=== PATIENT | male | born 1980 | race Caucasian/White ===

== ENCOUNTER 2025-02-28 18:09 | Emergency (ER) | payer BC, SELFPAY ==
[2025-02-28 18:15] VITALS: BP 156/97
--- NOTE | 2025-02-28 20:02 | ED.GENMED ---
History of Present Illness
General
Chief Complaint: Musculo-Skeletal Complaint
Time Seen by Provider: 02/28/25 20:01
History of Present Illness
History of Present Illness:
TIME OF INITIAL EVALUATION
- 8:05 PM
REVIEW OF OLD RECORDS
- The patient has history of back pain and GERD and high blood pressure. The patient was seen here and he was in diagnosed with a muscle spasm. He also had an MRI of the elbow and it was in 2039.
Note:
CHIEF COMPLAINT(S)
Left shoulder pain following suspected dislocation.
HISTORY OF PRESENT ILLNESS
The patient is a 45-year-old male who reports a history of left shoulder dislocation, which was previously surgically managed. He presented to the emergency room with complaints that the shoulder 'felt like it was out again' but was uncertain if it
truly dislocated this time. The patient did not seek medical attention in the past month despite discomfort. There was no acute injury, fall, or trauma reported in the past few days that could account for his current symptoms.
The patient describes recent left shoulder pain exacerbated by certain movements, particularly those that engage the rotator cuff. He reports tenderness to palpation over the acromioclavicular joint and biceps tendon, suggesting potential tendonitis
and inflammation of surrounding soft tissue. Radiographic evaluation indicated that the shoulder was in position with no dislocation observed.
The patients medical history includes a previous cervical spine injury at the C4-C5 level a couple of years ago, with some persistent neck muscle issues.
PHYSICAL EXAM
General: Alert, no acute distress.
Skin: Warm, dry.
Head: Normocephalic, atraumatic.
Neck: Supple, trachea midline.
Eye Ears, Nose, Mouth, and Throat: Oral mucosa moist.
Cardiovascular: Normal peripheral perfusion, No edema.
Respiratory: Respirations are non-labored.
Gastrointestinal: Abdomen nondistended
Back: Normal range of motion, Normal alignment.
Musculoskeletal: Tenderness over the acromioclavicular joint and biceps tendon, there is decreased active range of motion today in the abduction at the left shoulder, there is also some tenderness at the left biceps tendon proximally.
Neurological: Alert and oriented to person, place, time, and situation, No focal neurological deficit observed.
Psychiatric: Cooperative, appropriate mood & affect.
PROBLEM LIST
Acute:
1. Left shoulder pain with suspected soft tissue inflammation.
2. Possible rotator cuff involvement.
PLAN
1. Provide a sling for the patient for shoulder support.
2. Offer Toradol injection for anti-inflammatory relief, though the patient declined.
3. Patient to use Meloxicam at home as needed, as it is tolerated better than other NSAIDs which irritate his stomach.
4. Recommended follow-up with an gas specialist, specifically [facility], where the patient has previous records.
DIFFERENTIAL DIAGNOSIS
The Differential Diagnosis includes, in no particular order and is not limited to:
1. Rotator cuff injury
2. Tendonitis
3. Acromioclavicular joint inflammation or arthritis
4. Biceps tendonitis
5. Shoulder impingement syndrome
6. Adhesive capsulitis (frozen shoulder)
7. Glenohumeral joint arthritis
8. Labral tear
9. Cervical radiculopathy
10. Bursitis
RADIOLOGY
- X-ray of the left shoulder shows no acute fracture or dislocation
EKG
-
LABS
-
UPDATE
-SUMMARY OF ENCOUNTER
The patient, a 45-year-old male with a history of left shoulder dislocation previously managed surgically, presented to the emergency department with left shoulder pain. He reported feeling as though the shoulder was 'out' again, though there was no
acute trauma or injury preceding this episode. The pain was exacerbated by movements involving the rotator cuff. A physical exam revealed tenderness over the acromioclavicular joint and biceps tendon, suggesting potential tendonitis or soft tissue
inflammation. The radiographic evaluation indicated no dislocation was present. Management included providing a shoulder cradle sling for support. The patient was advised to follow up with [facility], where he has previous records, due to
suspected rotator cuff pathology or bicipital tendonitis. While a Toradol injection was offered for anti-inflammatory relief, the patient opted against it, preferring to use meloxicam at home.
DISPOSITION
Discharge
ASSESSMENT
Left shoulder pain likely due to rotator cuff pathology or bicipital tendonitis without dislocation.
PLAN
1. Provide shoulder cradle sling for stabilization and support.
2. Follow up with [facility] to evaluate for suspected rotator cuff involvement or biceps tendonitis.
INDEPENDENT REVIEW OF LABS AND INTERPRETATION OF TESTS
My independent review of the shoulder X-ray is that there is no dislocation observed.
FOLLOW-UP INSTRUCTIONS
The patient is advised to follow up with [facility] for further evaluation and management of the suspected shoulder pathology.
MEDICATION RECONCILIATION
The patient declined Toradol injection and will use meloxicam at home as needed.
MEDICAL DECISION MAKING
-Number and Complexity of Problems Addressed:
Chronic conditions affecting care include previous cervical spine injury and past left shoulder dislocation. Differential diagnosis considerations include rotator cuff injury, tendonitis, acromioclavicular joint inflammation or arthritis, biceps
tendonitis, shoulder impingement syndrome, adhesive capsulitis, glenohumeral joint arthritis, labral tear, cervical radiculopathy, bursitis.
-Data:
Category 1:
My independent interpretation of the shoulder X-ray showed no dislocation.
Category 3:
Discussion of management with the patient regarding use of meloxicam for pain relief and follow-up with orthopedic specialists.
-Risk:
Prescription medication was prescribed: The patient will take meloxicam at home for pain management.
DIAGNOSIS
1. Bicipital tendinitis suspected, ICD-10: M75.22
2. Possible Rotator Cuff Pathology, ICD-10: M75.100
Past History
Past History
ED Past Medical History: GERD, HTN, Hypercholesterolemia and Other (Gout)
ED Past Surgical History: Orthopedic (Shoulder)
Social History
Tobacco: Former smoker
Alcohol: Occasional
Personal: Single
Living: alone
Phy Exam
Physical Exam
Physical Exam:
See HPI
Course
Orders/Labs/Results
Orders:
Orders
02/28/25 18:19
CR Shoulder, Trauma - Left Urgent
Comment:
Reason For Exam: Injury
02/28/25 20:09
Sling Left-Treatment ONCE
Vital Signs
Initial and Last Documented VS:
Initial Vital Signs
Temp Pulse Resp BP Pulse Ox
36.8 C 60 16 156/97 99
02/28/25 18:15 02/28/25 18:15 02/28/25 18:15 02/28/25 18:15 02/28/25 18:15
Last Documented Vital Signs
Temp Pulse Resp BP Pulse Ox
36.8 C 60 16 156/97 99
02/28/25 18:15 02/28/25 18:15 02/28/25 18:15 02/28/25 18:15 02/28/25 20:04
*Pulse Oximetry
SaO2: 99
Oxygen Mode of Delivery: Room air
Patient hypoxic: no
*Critical Care Note
Total Time (30-74mins, 75-104mins- exclusive of procedures): Not Applicable
ED Attending Note
-
Portions of this chart may have been created with voice recognition software.� Occasional wrong word or��sound alike� substitutions may have occurred due to the inherent limitations of voice recognition software.
Discharge Plan
Departure
Patient Disposition: Home (Routine Discharge)
Date of Disposition: 02/28/25
Time of Disposition: 20:09
Patient with high blood pressure during this ER visit?: Yes
Discharge Problem:
Rotator cuff tendinitis
Instructions: How to Use a Shoulder Sling
Prescriptions:
No Action
oxycodone-acetaminophen [Endocet] 1 EACH tablet
1 ea PO PRN PRN (Reason: back pain)
Nadolol
40 mg PO DAILY
hydrocodone-ibuprofen 200 MG/7.5 MG tablet
1 tab PO Q6HPRN PRN (Reason: pain) Qty: 10 0RF
prochlorperazine maleate 10 MG tablet
10 mg PO Q8HPRN PRN (Reason: headaches and nausea) Qty: 12 0RF
amoxicillin-pot clavulanate 1 TABLET tablet
1 tab PO Q12 Qty: 20 0RF
prednisone 50 MG tablet
50 mg PO DAILY AT 0700 Qty: 7 0RF
prednisone 20 MG tablet
40 mg PO DAILY Qty: 6 0RF
Activity Restrictions/Additional Instructions:
I recommend that you follow-up with your doctors at [facility]. Continue meloxicam for pain return here if worse or other concerns.
Interventions
Interventions:
ED-Musculoskeletal Assessment Last Done: 02/28/25 19:14
Discharge Date and Time
Print Language: ROMANSH
== END 2025-02-28 20:27 | disposition home or self-care (01) ==
LOC: EMR 18:09
PROVIDERS: EMERGENCY PHYSICIAN Emergency Medicine
DX: M25.512 Pain in left shoulder (principal)
CPT/HCPCS: 99283; 73030

== ENCOUNTER 2025-04-22 23:51 | Emergency (ER) | payer BC, SELFPAY ==
[2025-04-22 23:53] VITALS: BP 146/86
--- NOTE | 2025-04-23 01:29 | ED.MUSCINJ ---
HPI-Injury
General
Chief Complaint: Musculo-Skeletal Complaint
Source: patient
Exam Limitations: none
Time Seen by Provider: 04/23/25 00:22
History of Present Illness-Injury
Initial Injury comments:
Note:
CHIEF COMPLAINT(S)
Right hand pain and previous shoulder issue.
HISTORY OF PRESENT ILLNESS
The patient is a 45-year-old male who presents with right hand pain. The patient mentions experiencing issues with the right hand and has a history of shoulder problems, previously addressed through surgery. The patient reports a past incident
involving a pinch at the C4 and C5 vertebrae level, occurring several years ago. The patient also discusses currently experiencing symptoms in the left hip, described as a 'small sciatic band' issue.
PAST MEDICAL AND SURGICAL HISTORY
The patient has mentioned undergoing surgery for a shoulder issue in the past.
PHYSICAL EXAM
General: Alert, no acute distress.
Skin: Warm, dry.
Head: Normocephalic, atraumatic.
Neck: Supple, trachea midline.
Eye Ears, nose, mouth and throat: Oral mucosa moist.
Cardiovascular: Normal peripheral perfusion, No edema.
Respiratory: Respirations are non-labored.
Back: Normal range of motion, Normal alignment.
Musculoskeletal: Normal ROM, normal strength.
Neurological: Alert and oriented to person, place, time, and situation, No focal neurological deficit observed.
Psychiatric: Cooperative, appropriate mood & affect.
PLAN
Plan to perform imaging studies for further evaluation of the right hand and potentially the shoulder. An MRI has been advised to assess the condition. The patient is advised that a CD copy of the imaging can be provided for reference and sharing
with other healthcare providers if needed.
DIFFERENTIAL DIAGNOSIS
The Differential Diagnosis includes, in no particular order and is not limited to:
1. Carpal Tunnel Syndrome
2. Cervical Radiculopathy
3. Rotator Cuff Tear
4. Scaphoid Fracture
5. Bursitis
6. Arthritis
7. Tendinitis
8. Peripheral Neuropathy
9. Shoulder Impingement Syndrome
10. Lateral Epicondylitis
Disposition:
SUMMARY OF ENCOUNTER
A 45-year-old male presented to the emergency department with sub-acute right-hand pain following a hand trauma several weeks ago. He also has a history of chronic left shoulder pain and chronic neck issues. The patients family doctor had requested
X-rays of the hand, shoulder, and cervical spine for further evaluation. At this time, the patient has no immediate complaints. Examination reveals full range of motion in the right hand with minimal swelling. X-rays of the hand, shoulder, and
cervical spine were performed, and all were negative.
DISPOSITION
The patient is to be discharged home with a copy of the X-rays for follow-up with his orthopedic surgeon and family doctor.
ASSESSMENT
Right hand pain following recent trauma, with negative X-rays indicating no fracture or acute abnormality.
PLAN
The patient will be discharged with copies of the X-rays to provide to the orthopedic surgeon and family doctor for continued evaluation and management.
INDEPENDENT REVIEW OF LABS AND INTERPRETATION OF TESTS
My independent interpretation of the X-rays of the right hand, shoulder, and cervical spine shows no abnormalities or fractures.
MEDICAL DECISION MAKING
-Complexity of Data Reviewed: Chronic conditions affecting care include past surgical history of the shoulder and chronic neck problems.
-Data:
Category 1
The following testing considered and performed: X-rays of the right hand, shoulder, and cervical spine.
-Risk:
Consideration of Admission/Observation: Escalation of care including admission/observation was considered given the complexity and risk of the patients presenting complaint. However, ultimately, I feel the patient is safe for outpatient management
with close follow-up. Reasoning: Work-up reassuring with negative X-rays, does not reveal any acute life/organ-threatening processes, patients symptoms well-controlled upon reevaluation, reexamination is reassuring, vitals are stable, patient
agreeable with discharge, reliable for follow-up.
DIAGNOSIS
Sprain of the right hand (ICD-10: S63.509A)
Chronic left shoulder pain (ICD-10: M25.512)
Cervicalgia (ICD-10: M54.2)
Past History
Past History
ED Past Medical History: GERD, HTN, Hypercholesterolemia and Other (Gout)
ED Past Surgical History: Orthopedic (Shoulder)
Social History
Tobacco: Former smoker
Alcohol: Occasional
Personal: Single
Living: alone
Injury Course
Orders/Labs/Results
Orders:
Orders
04/23/25 00:40
CR Cervical Sp 6/+ (flex/ext) Urgent
Reason For Exam: pain. please inc flex/ex
Hand, Right 3 View [CR Hand - Right Min 3 Views] Urgent
Comment:
Reason For Exam: recent trauma
Shoulder, Left, Trauma CR [CR Shoulder, Trauma - Left] Urgent
Comment:
Reason For Exam: pain
*Radiology
Radiology exam reviewed: all reviewed NAD by ED Provider
*Pulse Oximetry
SaO2: 97
Oxygen Mode of Delivery: Room air
Patient hypoxic: no
*Critical Care Note
Total Time (30-74mins, 75-104mins- exclusive of procedures): Not Applicable
ED Attending Note
-
Portions of this chart may have been created with voice recognition software.� Occasional wrong word or��sound alike� substitutions may have occurred due to the inherent limitations of voice recognition software.
Discharge Plan
Departure
Patient Disposition: Home (Routine Discharge)
Date of Disposition: 04/23/25
Time of Disposition: 01:29
Patient with high blood pressure during this ER visit?: Yes
Condition: Good
Discharge Problem:
Musculoskeletal pain
Instructions: Muscle and Bone Pain (DC), Using Cold for Pain, BLOOD PRESSURE
Prescriptions:
No Action
oxycodone-acetaminophen [Endocet] 1 EACH tablet
1 ea PO PRN PRN (Reason: back pain)
Nadolol
40 mg PO DAILY
hydrocodone-ibuprofen 200 MG/7.5 MG tablet
1 tab PO Q6HPRN PRN (Reason: pain) Qty: 10 0RF
prochlorperazine maleate 10 MG tablet
10 mg PO Q8HPRN PRN (Reason: headaches and nausea) Qty: 12 0RF
amoxicillin-pot clavulanate 1 TABLET tablet
1 tab PO Q12 Qty: 20 0RF
prednisone 50 MG tablet
50 mg PO DAILY AT 0700 Qty: 7 0RF
prednisone 20 MG tablet
40 mg PO DAILY Qty: 6 0RF
Referrals:
Jadiel Guillen MD [Active, Orthopedics]
Activity Restrictions/Additional Instructions:
Please take the CD provided to your orthopedic surgeon for reference
Thank You for choosing [facility].
It was a pleasure meeting you and taking part in your care. We hope for your continued healing and wellness.
Please read discharge instructions in their entirety. However, they are for general education and may not describe your exact diagnosis at discharge. Information on your ER visit and medical conditions were discussed with you along with appropriate
follow up information...
If indicated, please take your medications as instructed and indicated on discharge paperwork.
Please schedule a follow up appointment as directed. Call to schedule an appointment
Please return to the emergency department with ANY change in, persisting, or worsening of symptoms. If any of your symptoms do not improve, or persist, or become more severe within 6-12 hours, please return to the emergency department for further
care.
Please return to the emergency department if you develop a headache, neck pain/stiffness, fever greater than 100.4F, chest pain, shortness of breath, persistent nausea, vomiting, slurred speech, difficulty walking, numbness/tingling, weakness, signs
of infection or any other symptoms that are worrisome to you.
If you have any questions or concerns please do not hesitate to call the Hospital at or E-mail me directly at [email or web address]
Interventions
Interventions:
*Risk Screen - Suicide Last Done: 04/22/25 23:53
*General Assessment Last Done: 04/22/25 23:53
*Neglect/Abuse Screening Last Done: 04/22/25 23:53
*ED- Fall Risk Assessment Last Done: 04/22/25 23:53
*ED COVID-19 Vaccine History Last Done: 04/22/25 23:53
Discharge Date and Time
Print Language: BURUNDIAN
[2025-04-23 01:37] VITALS: BP 122/73
== END 2025-04-23 01:39 | disposition home or self-care (01) ==
LOC: EMR 23:51
PROVIDERS: EMERGENCY PHYSICIAN Student in an Organized Health Care Education/Training Program; FAMILY PHYSICIAN Family Medicine
DX: M79.18 Myalgia, other site (principal); M25.512 Pain in left shoulder; G89.21 Chronic pain due to trauma; I10 Essential (primary) hypertension; E78.00 Pure hypercholesterolemia, unspecified; K21.9 Gastro-esophageal reflux disease without esophagitis; M10.9 Gout, unspecified; Z87.891 Personal history of nicotine dependence
CPT/HCPCS: 99283; 72052; 73030; 73130

== ENCOUNTER 2025-04-29 15:19 | Emergency (ER) | payer BC, SELFPAY ==
[2025-04-29] VITALS (8 sets, daily range): BP systolic 93–119; BP diastolic 67–85; BMI 29.2
[2025-04-29 15:34] LABS: Hematocrit 38.6 % (39.0-52.0); Hemoglobin 12.9 g/dL (13.0-18.0); Mean Corp Hgb Conc. 33.4 g/dL (33.0-37.0); Mean Corpuscular Volume 90.8 fL (80.0-94.0); Nucleated Red Blood Cells % 0 % (-); Platelet Count 252 10^3/uL (130-400); Red Cell Dist. Width 12.8 % (11.5-14.5)
[2025-04-29] MEDS: NSS 1000 IV (15:42)
[2025-04-29 15:49] LABS: Blood Urea Nitrogen 29 mg/dl (9-20); Calcium 9.3 mg/dl (8.4-10.2); Carbon Dioxide 34 mmol/L (22-30); Chloride 97 mmol/L (98-107); Estimated Creatinine Clearance 90 ml/min; Glucose 107 mg/dl (70-99); Potassium 4.4 mmol/L (3.5-5.1); Sodium 133 mmol/L (135-145); eGFR > 60.00
[2025-04-29 16:00] LABS: Troponin I < 0.012 ng/ml
--- NOTE | 2025-04-29 19:20 | ED.GENMED ---
History of Present Illness
General
Chief Complaint: Fainting Sensation
Source: patient
Exam Limitations: none
Time Seen by Provider: 04/29/25 15:22
History of Present Illness
History of Present Illness:
45-year-old male was getting a left shoulder injection for a myelogram MRI. During the injection of the lidocaine patient became diaphoretic clammy sweaty hypotensive and bradycardic. No chest pain or shortness of breath. Sent for further
evaluation.
Past History
Past History
ED Past Medical History: GERD, HTN, Hypercholesterolemia and Other (Gout)
ED Past Surgical History: Orthopedic (Shoulder)
Social History
Tobacco: Former smoker
Alcohol: Occasional
Personal: Single
Living: alone
Review of Systems
Review of Systems
All Other Systems: Not applicable
Constitutional: Denies fever
Respiratory: Reports no symptoms
Cardiac: Denies chest pain or palpitations
Phy Exam
Physical Exam
Physical Exam:
GENERAL: Alert and oriented in no apparent distress
EYE: Orbits normal.
NECK: Supple, no significant adenopathy.
ENT: Pharynx without erythema
CARDIAC: Bradycardic and regular no murmur
LUNGS: Clear breath sounds,normal
ABDOMEN: Soft, without focal tenderness or distention
NEUROLOGICAL: Alert and oriented , grossly non-focal
SKIN: Warm and dry, no rash or lesion, no discoloration, Band-Aid over the left shoulder
MUSCULOSKELETAL: No edema,no deformity.Good color
PSYCH: Normal and appropriate interaction.
Course
Orders/Labs/Results
Orders:
Orders
04/29/25 15:21
EKG [Electrocardiogram (*1)] Urgent
Reason for Study: Syncope
EKG- Treatment ONCE
04/29/25 15:22
Cardiac Monitoring- Treatment ONCE
IV Insert/Care/Rem.- Treatment PRN
0.9% Sodium Chloride 1000 ml [Nss] 1,000 ml IV BOLUS
Portable Chest Xray [CR Chest Portable - 1 View] Urgent
Comment:
Reason For Exam: Shoulder injection. Evaluate for pneumothorax
Reason Study Needs to be Portable: Patient Unstable
Pulse Ox/cont/shift [RESP] Stat
Quantity: 1
04/29/25 15:27
Basic Metabolic Panel Urgent
Complete Blood Count/With Diff Urgent
Troponin I Urgent
04/29/25 19:20
Dexamethasone Sod Phosphate [Decadron] 8 mg IV NOW STA
Abnormal Lab Results
04/29/25
15:27
WBC 13.7 H 10^3/uL
(4.8-10.8)
RBC 4.25 L 10^6/uL
(4.70-6.10)
Hgb 12.9 L g/dL
(13.0-18.0)
Hct 38.6 L %
(39.0-52.0)
Abs Immat Gran (auto) 0.1 H 10^3/uL
(0-0.05)
Absolute Neuts (auto) 7.1 H 10^3/uL
(1.4-6.5)
Absolute Lymphs (auto) 5.3 H 10^3/uL
(1.2-3.4)
Absolute Monos (auto) 1.0 H 10^3/uL
(0.1-0.6)
Immature Gran % 0.9 H %
(0-0.5)
Sodium 133 L mmol/L
(135-145)
Chloride 97 L mmol/L
(98-107)
Carbon Dioxide 34 H mmol/L
(22-30)
BUN 29 H mg/dl
(9-20)
Glucose 107 H mg/dl
(70-99)
04/29/25 15:27
04/29/25 15:27
Vital Signs
Initial and Last Documented VS:
Initial Vital Signs
Temp Pulse Resp BP Pulse Ox
97.4 F 44 13 118/85 100
04/29/25 15:22 04/29/25 15:22 04/29/25 15:22 04/29/25 15:22 04/29/25 15:22
Last Documented Vital Signs
Temp Pulse Resp BP Pulse Ox
97.4 F 47 10 109/73 100
04/29/25 15:22 04/29/25 19:15 04/29/25 19:15 04/29/25 19:15 04/29/25 19:22
MDM/Problems Addressed
Differential Diagnosis Includes:
Multiple rechecks. Patient has brain stable. Was hypotensive for a while. However this resolved. He feels well. No pneumothorax. Do not feel this was likely to be an allergic reaction. He had no hives no wheezing no other issues related to
anaphylaxis. Likely was all vasovagal. Discharged to follow-up. Patient ambulated well. I did recommend he not drive.
*Pulse Oximetry
SaO2: 100
Oxygen Mode of Delivery: Room air
Patient hypoxic: no
*EKG
Interpretation: abnormal
Comparison EKG: no changes
Heart Rate: 47
Rate: bradycardiac
Rhythm: sinus
[place]: normal axis
Interval: normal interval
QRS Pattern: normal QRS
Ischemia: no ischemia
*Stockbroking Dealer Interpretation
Rate: bradycardiac
Interpretation: abnormal
Heart Rate: 50
Rhythm: sinus
*Critical Care Note
Total Time (30-74mins, 75-104mins- exclusive of procedures): Not Applicable
Data Reviewed
Review of Other/Old Records Reveals: Labs, Records and Testing
Update Note
Update Note:
1919.... Patient doing well. Last blood pressure 109/73. Feels well. Stable sinus bradycardia. Workup unremarkable. Highly doubt this was a allergic issue. Symptoms started during the initial lidocaine injection. He has no other findings to
support anaphylaxis. However he has been on steroids anyway. Will give him a dose of Decadron prior to discharge
ED Attending Note
-
Portions of this chart may have been created with voice recognition software.� Occasional wrong word or��sound alike� substitutions may have occurred due to the inherent limitations of voice recognition software.
Discharge Plan
Departure
Patient Disposition: Home (Routine Discharge)
Date of Disposition: 04/29/25
Time of Disposition: 19:21
Patient with high blood pressure during this ER visit?: No
Discharge Problem:
Vasovagal syncope, Left shoulder injection
Instructions: Syncope (Fainting) (DC)
Prescriptions:
No Action
oxycodone-acetaminophen [Endocet] 1 EACH tablet
1 ea PO PRN PRN (Reason: back pain)
Nadolol
40 mg PO DAILY
hydrocodone-ibuprofen 200 MG/7.5 MG tablet
1 tab PO Q6HPRN PRN (Reason: pain) Qty: 10 0RF
prochlorperazine maleate 10 MG tablet
10 mg PO Q8HPRN PRN (Reason: headaches and nausea) Qty: 12 0RF
amoxicillin-pot clavulanate 1 TABLET tablet
1 tab PO Q12 Qty: 20 0RF
prednisone 50 MG tablet
50 mg PO DAILY AT 0700 Qty: 7 0RF
prednisone 20 MG tablet
40 mg PO DAILY Qty: 6 0RF
Referrals:
Vikas Calles DO [Family Provider, Family Practice] - Follow up in 2-3 days
Interventions
Interventions:
*Risk Screen - Suicide Last Done: 04/29/25 19:05
*General Assessment Last Done: 04/29/25 15:45
*Neglect/Abuse Screening Last Done: 04/29/25 15:34
*ED- Fall Risk Assessment Last Done: 04/29/25 15:34
*ED COVID-19 Vaccine History Last Done: 04/29/25 15:34
*Nursing Disposition Last Done: 04/29/25 19:49
ED- Cardiac Assessment Last Done: 04/29/25 15:34
ED- Neurological Assessment Last Done: 04/29/25 15:34
Discharge Date and Time
Discharge Date/Time: 04/29/25 19:51
Print Language: TAJIK
[2025-04-29] MEDS: DECADRON 8 MG IV (19:27)
== END 2025-04-29 19:51 | disposition home or self-care (01) ==
LOC: EMR 15:19
PROVIDERS: EMERGENCY PHYSICIAN Emergency Medicine; FAMILY PHYSICIAN Family Medicine
DX: R55 Syncope and collapse (principal); R00.1 Bradycardia, unspecified; I10 Essential (primary) hypertension; E78.00 Pure hypercholesterolemia, unspecified; K21.9 Gastro-esophageal reflux disease without esophagitis; M10.9 Gout, unspecified; Z87.891 Personal history of nicotine dependence
CPT/HCPCS: 99284; 96374; 96361; 71045; 80048; 84484; 85025; 93005

== ENCOUNTER → 2025-05-24 16:38 | Outpatient (REF) | payer BC, SELFPAY | LOC: RAD 16:38 | PROVIDERS: ATTENDING PHYSICIAN Orthopaedic Surgery Hand Surgery; FAMILY PHYSICIAN Family Medicine | DX: S43.432A Superior glenoid labrum lesion of left shoulder, initial encounter (principal) | CPT/HCPCS: 70030 ==